=== PATIENT | male | born 1975 | race Two or more races ===

== ENCOUNTER 2016-05-21 03:48 | Emergency (ER) | payer MEDICAID ==
[~2016-05-21] VITALS: Ht 175.3 cm; Wt 81.6 kg
[2016-05-21 03:48] VITALS: BP 124/62
[2016-05-21] MEDS ORDERED: OLANZAPINE 5 MG TABLET ONE (05:28)
[2016-05-21] MEDS ORDERED: HALOPERIDOL LACTATE INJ 5 MG/ML VIAL IM ONE (05:30)
[2016-05-21] MEDS ORDERED: OLANZAPINE 5 MG TABLET PO ONE (05:30)
== END 2016-05-21 06:05 | disposition left against medical advice (07) ==
LOC: ER 04:03
DX: F15.10 Other stimulant abuse, uncomplicated (principal); F34.1 Dysthymic disorder
CPT/HCPCS: A4606; Z7610